=== PATIENT | female | born 1925 | race Caucasian/White ===

== ENCOUNTER 2017-02-06 07:27 | Day surgery (SDC) | payer OTHER, BC ==
[2017-02-06] MEDS ORDERED: IRON SUCROSE INJECTION 100 MG in SODIUM CHLORIDE 100 ML IVPB ONE (08:00)
[2017-02-06 13:46] VITALS: TEMP 98.3
[2017-02-06 15:04] VITALS: BP 109/58; PULSE 59
--- NOTE | 2017-02-06 22:58 | HP ---
[facility]ellite [facility] - Chief Complaint History of Present Illness: here for IV Venofer. Seen and examined. denies any complains. History Source: Patient Limitations to Obtaining History: No Limitations - Past Medical History Allergies/Adverse Reactions: Allergies Allergy/AdvReac Type Severity Reaction Status Date / Time No Known Drug Allergies Allergy Verified 10/07/15 11:32 Kiwi Allergy Uncoded 10/07/15 11:32 [employer]: Yes: Other (carotid stenosis) Cardiovascular: Yes: HTN, Hyperlipdemia Heme/Onc: Yes: Anemia Endocrine: Yes: Hypothyroidism - Current Medications Current Medications: Home Medications Medication Instructions Recorded Amlodipine Besylate 5 mg PO DAILY 10/07/15 Ascorbate Calcium [Vitamin C] 500 mg PO DAILY 10/07/15 Aspirin [ASA -] 81 mg PO DAILY 10/07/15 Atorvastatin Ca [Lipitor] 40 mg PO HS 10/07/15 Ezetimibe [Zetia] 10 mg PO HS 10/07/15 Levothyroxine [Synthroid -] 75 mcg PO DAILY 10/07/15 Satellite Physical Exam - Physical Examination Vital Signs: Vital Signs Period Temp Pulse Resp BP Sys/Piper Pulse Ox Last 24 Hr 98.3 F-98.3 F 59-61 16-16 109-132/51-58 General Appearance: Well Nourished, Well Developed, Alert & Oriented x3 Lung: Clear to auscultation Heart: Regular rate & rhythm Abdomen: Soft Satellite Impression/Plan - Impression/Plan Impression: For venofer. Follow up in office for lab work and to determine the next venofer
== END 2017-02-06 16:25 | disposition home or self-care (01) ==
LOC: JONCNONCHE 07:27 → J7W 13:08 → JONCNONCHE 16:25
PROVIDERS: ATTEND Internal Medicine Hematology & Oncology
PROC: 3E033GC Introduction of Other Therapeutic Substance into Peripheral Vein, Percutaneous Approach (ICD-10-PCS; principal; 2017-02-06)
DX: D50.9 Iron deficiency anemia, unspecified (principal)
CPT/HCPCS: 96365; J1756

== ENCOUNTER 2017-04-24 07:13 | Day surgery (SDC) | payer OTHER, BC ==
[2017-04-24] MEDS ORDERED: IRON SUCROSE INJECTION 100 MG in SODIUM CHLORIDE 100 ML IVPB ONE (10:00)
[2017-04-24 14:01] VITALS: TEMP 97.9
[2017-04-24 14:05] VITALS: BP 100/47; PULSE 60
== END 2017-04-24 14:10 | disposition home or self-care (01) ==
LOC: JONCNONCHE 07:13 → J7W 13:19 → JONCNONCHE 14:10
PROVIDERS: ATTEND Internal Medicine Hematology & Oncology
PROC: 3E033GC Introduction of Other Therapeutic Substance into Peripheral Vein, Percutaneous Approach (ICD-10-PCS; principal; 2017-04-24)
DX: D50.9 Iron deficiency anemia, unspecified (principal); K90.9 Intestinal malabsorption, unspecified
CPT/HCPCS: 96365; 96417; J1756

== ENCOUNTER 2017-06-19 17:12 | Emergency (ER) | payer OTHER, BC ==
[2017-06-19 17:37] VITALS: BMI 27.6
[2017-06-19] MEDS ORDERED: ACETAMINOPHEN 325 MG TABLET (FP) PO ONE (20:23)
[2017-06-19] MEDS ORDERED: ACETAMINOPHEN 325 MG TABLET (FP) ONE ×2 (20:25→20:27)
[2017-06-19 22:14] VITALS: BP 152/64; PULSE 66; TEMP 97.9
--- NOTE | 2017-06-19 22:32 | PDOC ---
History of Present Illness - General History Source: Patient - History of Present Illness Initial Comments: 06/19/17 22:34 The patient is an 89 year old female with significant medical history of iron deficiency anemia (followed by Dr. Carney, normal bone marrow biopsy), HTN, hypercholesterolemia, hypothyroidism, who is presenting to the emergency department for complaint of progressively increasing pain to left ear, face, and neck pain since Sunday. She states the pain at first felt like a stiff neck , however, reports the pain severity has increased today. She denies facial numbness or tingling. She denies trauma. She denies recent travels or sick contacts. She denies recent allergic reactions. She denies chest pain, shortness of breath, headache and dizziness. She denies fever, chills, nausea, vomit, diarrhea and constipation. She denies dysuria, frequency, urgency and hematuria. Surgical Hx: (06/22/15) Carotid Endarterectomy (90% blocked carotid artery) Social Hx: Former smoker (quit 40 years ago), Denies alcohol or recreational drug use. PCP: Dr. Albright <Vicki Hunt - Last Filed: 06/20/17 00:29> - General History Source: Patient <Zacarias Singh - Last Filed: 06/20/17 00:46> - General Chief Complaint: Pain, Acute Stated Complaint: FACIAL PAIN Time Seen by Provider: 06/19/17 22:31 Past History <Vicki Hunt - Last Filed: 06/20/17 00:29> - Past Medical History Anemia: Yes CVA: No COPD: No HTN: Yes Hypercholesterolemia: Yes Thyroid Disease: Yes - Surgical History Orthopedic Surgery: Yes (B/L KNEE REPLACEMENT) - Suicide/Smoking/Psychosocial Hx Smoking History: Never smoked Have you smoked in the past 12 months: No If you are a former smoker, when did you quit?: 40 YEARS AGO Information on smoking cessation initiated: No Hx Alcohol Use: No Drug/Substance Use Hx: No Substance Use Type: None Hx Substance Use Treatment: No <Zacraias Singh - Last Filed: 06/20/17 00:46> - Past Medical History Allergies/Adverse Reactions: Allergies Allergy/AdvReac Type Severity Reaction Status Date / Time No Known Drug Allergies Allergy Verified 06/19/17 17:32 Kiwi Allergy Uncoded 06/19/17 17:32 Home Medications: Ambulatory Orders Amlodipine Besylate 5 mg PO DAILY 10/07/15 Ascorbate Calcium [Vitamin C] 500 mg PO DAILY 10/07/15 Ezetimibe [Zetia] 10 mg PO HS 10/07/15 Levothyroxine [Synthroid -] 75 mcg PO DAILY 10/07/15 Furosemide [Lasix] 20 mg PO DAILY 06/19/17 Lisinopril [Zestril] 2.5 mg PO DAILY 06/19/17 Pravastatin Sodium [Pravachol (Nf)] 80 mg PO HS 06/19/17 Ranitidine HCl [Zantac] 150 mg PO DAILY 06/19/17 Amoxicillin - [Amoxicillin 500mg Capsule -] 500 mg PO BID #14 capsule 06/20/17 Review of Systems - Review of Systems Able to Perform ROS?: Yes Comments:: 06/19/17 22:34 CONSTITUTIONAL: Absent: fever, chills, diaphoresis, generalized weakness, malaise, loss of appetite HEENT: (+) left ear, face and neck pain. Absent: rhinorrhea, nasal congestion, throat pain, throat swelling, difficulty swallowing, mouth swelling, eye pain, visual Changes CARDIOVASCULAR: Absent: chest pain, syncope, palpitations, irregular heart rate, lightheadedness , peripheral edema RESPIRATORY: Absent: cough, shortness of breath, dyspnea with exertion, orthopnea, wheezing, stridor, hemoptysis GASTROINTESTINAL: Absent: abdominal pain, abdominal distension, nausea, vomiting, diarrhea, constipation, melena, hematochezia GENITOURINARY: Absent: dysuria, frequency, urgency, hesitancy, hematuria, flank pain, genital pain MUSCULOSKELETAL: (+) left ear, face and neck pain. Absent: arthralgia, joint swelling SKIN: Absent: rash, itching, pallor HEMATOLOGIC/IMMUNOLOGIC: Absent: easy bleeding, easy bruising, lymphadenopathy, frequent infections ENDOCRINE: Absent: unexplained weight gain, unexplained weight loss, heat intolerance, cold intolerance NEUROLOGIC: Absent: headache, focal weakness or paresthesias, dizziness, unsteady gait, seizure, mental status changes, bladder or bowel incontinence PSYCHIATRIC: Absent: anxiety, depression, suicidal or homicidal ideation, hallucinations. <Vicki Hunt - Last Filed: 06/20/17 00:29> *Physical Exam - Vital Signs Last Vital Signs Temp Pulse Resp BP Pulse Ox 97.9 F 66 16 152/64 100 06/19/17 22:14 06/19/17 22:14 06/19/17 17:33 06/19/17 22:14 06/19/17 22:14 - Physical Exam Comments: 06/19/17 22:36 GENERAL: Well developed, well nourished. Awake and alert. No acute distress. HEENT: Normocephalic, atraumatic. PERRLA, EOMI. No conjunctival pallor. Sclera are non- icteric. Moist mucous membranes. Oropharynx is clear. NECK: (+)cervical muscle spasm. minimally tender to palpation to posterior cervical muscles. Supple. Full ROM. No JVD. Carotid pulses 2+ and symmetric, without bruits. No thyromegaly. No lymphadenopathy. CARDIOVASCULAR: Regular rate and rhythm. No murmurs, rubs, or gallops. Distal pulses are 2+ and symmetric. PULMONARY: No evidence of respiratory distress. Lungs clear to auscultation bilaterally. No wheezing, rales or rhonchi. ABDOMINAL: Soft. Non-tender. Non-distended. No rebound or guarding. No organomegaly. Normoactive bowel sounds. MUSCULOSKELETAL (+)cervical muscle spasm. minimally tender to palpation to posterior cervical muscles. Normal range of motion at all joints. No bony deformities. No CVA tenderness. EXTREMITIES: No cyanosis. No clubbing. No edema. No calf tenderness. SKIN: Warm and dry. Normal capillary refill. No rashes. No jaundice. NEUROLOGICAL: Alert, awake, appropriate. Cranial nerves 2-12 intact. Normoreflexic in the upper and lower extremities. Normal speech. Toes are down-going bilaterally. Gait is normal without ataxia. PSYCHIATRIC: Cooperative. Good eye contact. Appropriate mood and affect. <Vicki Hunt - Last Filed: 06/20/17 00:29> - Vital Signs Last Vital Signs Temp Pulse Resp BP Pulse Ox 97.9 F 66 16 152/64 100 06/19/17 22:14 06/19/17 22:14 06/19/17 17:33 06/19/17 22:14 06/19/17 22:14 <Zacarias Singh - Last Filed: 06/20/17 00:46> ED Treatment Course - RADIOLOGY Radiograph Interpretation: EXAM: CT HEAD without contrast HISTORY: Dizziness. Rule out bleed. COMPARISON: None. FINDINGS: The ventricular system is midline and nondilated. The sulcal pattern is normal for the patient's age. There is no bleed, mass, extra-axial fluid collection or mass effect. No skull fracture or skull lesion is identified. The visualized paranasal sinuses and mastoid air cells are clear other than mild mucosal thickening in the ethmoid sinuses and left maxillary sinus.. IMPRESSION: No acute pathology. Porfirio Kendall MD 06/20/2017 00:00 EST EXAM: CT CERVICAL SPINE WITHOUT CONTRAST HISTORY: Left neck pain COMPARISON: None. FINDINGS: There are multilevel moderate degenerative changes, mostly small disc bulge and uncovertebral joint hypertrophy. There is a mild degenerative anterolisthesis of C2 on C3. There is mild central canal at the C4-5 and C5-6 levels and mild left neural foraminal narrowing at the C6-7 level. There is no fracture or prevertebral soft tissue swelling. Lung apices are clear. IMPRESSION: No fracture. Degenerative changes with mild left neural foraminal narrowing at C6-7. Porfirio Kendall MD 06/20/2017 00:03 EST - Medications Given in the ED: ED Medications Discontinued Medications Generic Name Dose Route Start Last Admin Trade Name Freq PRN Reason Stop Dose Admin Acetaminophen 650 mg 06/19/17 20:23 06/19/17 20:32 Tylenol - PO 06/19/17 20:24 650 mg ONCE ONE Administration <Vicki Hunt - Last Filed: 06/20/17 00:29> - Medications Given in the ED: ED Medications Discontinued Medications Generic Name Dose Route Start Last Admin Trade Name Freq PRN Reason Stop Dose Admin Acetaminophen 650 mg 06/19/17 20:23 06/19/17 20:32 Tylenol - PO 06/19/17 20:24 650 mg ONCE ONE Administration <Zacarias Singh - Last Filed: 06/20/17 00:46> Medical Decision Making - Medical Decision Making 06/20/17 00:43 Dr. Singh: The scribe's documentation has been prepared under my direction and personally reviewed by me in its entirery. I confirm that the note above accurately reflects all work, treatment, procedures, and medical decision making performed by me. CAT scan of head and cervical spine are negative for any pathology. Pt has h/o recurrent sinus infections. Pt will be give Amxocillin to see if symptoms improve. FAmily advised to follow up with her pcp in the morning. <Zacarias Singh - Last Filed: 06/20/17 00:46> *DC/Admit/Observation/Transfer - Transfer to Acute Care Facility Transfer comment: 06/19/17 22:37 Documentation prepared by Vicki Hunt, acting as chief medical physicist for Zacarias Singh DO <Vicki Hunt - Last Filed: 06/20/17 00:29> - Discharge Dispostion Admit: No <Zacarias Singh - Last Filed: 06/20/17 00:46> Diagnosis at time of Disposition: Neck pain Sinusitis Qualifiers: Sinusitis location: unspecified location Chronicity: unspecified Qualified Code (s): J32.9 - Chronic sinusitis, unspecified - Discharge Dispostion Disposition: HOME Condition at time of disposition: Stable - Prescriptions Prescriptions: Amoxicillin - [Amoxicillin 500mg Capsule -] 500 mg PO BID #14 capsule - Referrals Referrals: Asher Peace [Primary Care Provider] - - Patient Instructions Printed Discharge Instructions: DI for Neck Pain, DI for Sinusitis Additional Instructions: Please follow up with your primary care for re-evaluation and further tomorrow. Take medication as directed. Take Tylenol for pain. Return if any problems - Post Discharge Activity
[2017-06-20] MEDS ORDERED: AMOXICILLIN 500 MG CAPSULE (FP) PO ONE (00:39)
[2017-06-20] MEDS ORDERED: AMOXICILLIN 500 MG CAPSULE (FP) ONE (01:00)
== END 2017-06-20 01:06 | disposition home or self-care (01) ==
LOC: JER 17:12
DX: M54.2 Cervicalgia (principal); J32.9 Chronic sinusitis, unspecified
CPT/HCPCS: 70450-TC; 71045-TC; 72125-TC; 99281-25; 99283-25

== ENCOUNTER 2017-07-20 07:37 | Day surgery (SDC) | payer OTHER, BC ==
[2017-07-20] MEDS ORDERED: IRON SUCROSE INJECTION 100 MG in SODIUM CHLORIDE 100 ML IVPB ONE (10:00)
[2017-07-20] MEDS ORDERED: IRON SUCROSE INJECTION 200 MG in SODIUM CHLORIDE 100 ML IVPB ONE (13:00)
[2017-07-20 15:06] VITALS: BP 110/56; PULSE 60; TEMP 97.6
== END 2017-07-20 14:47 | disposition home or self-care (01) ==
LOC: JONCNONCHE 07:37 → J7W 10:07 → JONCNONCHE 14:47
PROVIDERS: ATTEND Internal Medicine Hematology & Oncology
PROC: 3E033GC Introduction of Other Therapeutic Substance into Peripheral Vein, Percutaneous Approach (ICD-10-PCS; principal; 2017-07-20)
DX: E61.1 Iron deficiency (principal); K90.9 Intestinal malabsorption, unspecified
CPT/HCPCS: J1756